=== PATIENT | female | born 1980 | race Caucasian/White ===

== ENCOUNTER 2017-04-12 21:35 | Emergency (ER) | payer OTHER ==
[2017-04-13 01:09] VITALS: RESP 16
--- NOTE | 2017-04-13 02:10 | US ---
EXAM: US First Trimester, Transabdominal US , Transvaginal CLINICAL HISTORY: Reason: pain Generalized pain, hx of molar x 2 years ago with D+C TECHNIQUE: Real-time transabdominal and transvaginal obstetrical ultrasound of the maternal pelvis and a first trimester with image documentation. Transvaginal imaging was used for better evaluation of the fetus and adnexa. COMPARISON: No relevant prior studies available. FINDINGS: Gestation: Small intrauterine saclike structure 0.4 x 0.3 x 0.3 cm may be gestational sac. No yolk sac or pole. Uterus/cervix: Uterus 9.4 x 6.2 x 5.8 cm. 1.2 cm hypoechoic lesion in the posterior fundal myometrium, likely fibroid. Thickened endometrium 2. 5 cm. Ovaries: Right Ovary: 4.4 x 3.1 x 2.4 cm Left Ovary: 2.5 x 1.7 x 2.1 cm 4.9 x 3.6 x 2.1 cm simple cyst in the right adnexa may be paraovarian cyst. Origin not clearly delineated. 2.8 cm right ovarian corpus luteum. Free fluid: No free fluid Other findings: LMP 03/01/17. Dates by LMP 6 weeks 1 day. IMPRESSION: 1. Small intrauterine saclike structure may be gestational sac. Differential diagnosis includes early intrauterine , spontaneous , nonvisualized ectopic . Correlate with labs and consider follow-up. 2. Right ovarian corpus luteum. 3. 4.9 cm right adnexal simple cyst. May be paraovarian cyst, however, origin not clearly delineated.
--- NOTE | 2017-04-13 02:31 | ED ---
Abdominal Pain HPI - General Chief Complaint: Abdominal Pain Stated Complaint: 6 weeks /Abd Pain Time Seen by Provider: 04/12/17 23:04 Source: patient Mode of arrival: ambulatory Limitations: no limitations - History of Present Illness MD Complaint: abdominal pain Onset/Timin -: hour(s) Location: suprapubic Radiation: back Migration to: no migration Severity: mild Quality: cramping Consistency: constant Improves With: nothing Worsens With: nothing Associated Symptoms: denies other symptoms - Related Data LMP (females 10-50): Patient : Yes Home Medications Medication Instructions Recorded Confirmed Pedi Multivit No.25/Folic Acid 2 tab PO DAILY 04/12/17 04/12/17 [Flintstones Multivit Chew Tab] Allergies Allergy/AdvReac Type Severity Reaction Status Date / Time sulfamethoxazole Allergy Rash/Hives/ Verified 04/12/17 23:28 [From Bactrim] Swelling trimethoprim [From Bactrim] Allergy Rash/Hives/ Verified 04/12/17 23:28 Swelling Review of Systems ROS Statement: Those systems with pertinent positive or pertinent negative responses have been documented in the HPI. ROS Other: All systems not noted in ROS Statement are negative. Constitutional: Denies: fever, chills Respiratory: Denies: cough, dyspnea Cardiovascular: Denies: chest pain, palpitations, edema Gastrointestinal: Reports: as per HPI, abdominal pain. Denies: nausea, vomiting , diarrhea, constipation Genitourinary: Reports: abnormal menses. Denies: dysuria, frequency, hematuria Musculoskeletal: Denies: back pain Skin: Denies: rash Neurological: Denies: headache Past Medical History Past Medical History: No Reported History Additional Past Medical History / Comment(s): miscarriage in jul 2015, chronic back pain, molar History of Any Multi-Drug Resistant Organisms: None Reported Past Surgical History: Cholecystectomy Additional Past Surgical History / Comment(s): d & c Past Psychological History: No Psychological Hx Reported, Depression Smoking Status: Current every day smoker Past Alcohol Use History: None Reported Past Drug Use History: None Reported General Exam Limitations: no limitations General appearance: alert, in no apparent distress Head exam: Present: atraumatic, normocephalic Eye exam: Present: normal appearance. Absent: scleral icterus, conjunctival injection Respiratory exam: Present: normal lung sounds bilaterally. Absent: respiratory distress, wheezes, rales, rhonchi, stridor Cardiovascular Exam: Present: regular rate, normal rhythm, normal heart sounds. Absent: systolic murmur, diastolic murmur, rubs, gallop GI/Abdominal exam: Present: soft. Absent: distended, tenderness, guarding, rebound, rigid Extremities exam: Present: normal inspection, normal capillary refill. Absent: pedal edema, calf tenderness Back exam: Present: normal inspection. Absent: CVA tenderness (R), CVA tenderness (L) Neurological exam: Present: alert Skin exam: Present: warm, dry, intact, normal color. Absent: rash Course Vital Signs 04/12/17 04/13/17 04/13/17 21:49 01:08 02:36 Temperature 98.7 F 97.6 F Pulse Rate 111 H 89 64 Respiratory 18 16 16 Rate Blood Pressure 141/86 140/74 118/61 O2 Sat by Pulse 100 98 96 Oximetry Medical Decision Making - Medical Decision Making This patient is a 36-year-old woman who did recently take test was positive. She had not had ultrasound yet. She has not seen the demurrage agent yet. Little over 20 hours before coming in she started to have some low pelvic and low back cramping. When this did not improve she decided to be seen here. She is not having any vaginal bleeding for other symptoms(See ROS). The beta hCG is still relatively low, and the ultrasound was performed, see the attached results. The patient and I discussed the results and she will follow- up to have serial hCG and ultrasound. Discussed return parameters and all questions answered. - Lab Data Lab Results 04/13/17 04/13/17 Range/Units 00:07 00:07 HCG, Quant 910.5 mIU/mL Blood Type A Positive Blood Type Recheck No Disposition Clinical Impression: Threatened miscarriage Disposition: HOME SELF-CARE Condition: Good Instructions: Threatened Miscarriage (ED) Referrals: Srinivas Albert Jr, DO [Primary Care Provider] - 1-2 days Aisha Alarcon DO [Doctor of Osteopathic Medicine] - 1-2 days
[2017-04-13 02:37] VITALS: BP 118/61; PULSE 64; TEMP 97.6
== END 2017-04-13 02:36 | disposition home or self-care (01) ==
LOC: EC 21:35
DX: O20.0 Threatened abortion (principal); O99.331 Smoking (tobacco) complicating pregnancy, first trimester; F17.200 Nicotine dependence, unspecified, uncomplicated; Z3A.01 Less than 8 weeks gestation of pregnancy; Z79.899 Other long term (current) drug therapy; Z88.2 Allergy status to sulfonamides
CPT/HCPCS: 36415; 76801; 76817; 84702; 86900; 86901; 99284

== ENCOUNTER → 2017-04-15 | Outpatient (CLI) | payer OTHER | LOC: LABWHC1 14:12 | PROVIDERS: ATTEND Emergency Medicine | DX: O03.9 Complete or unspecified spontaneous abortion without complication (principal) | CPT/HCPCS: 36415; 84702 ==

== ENCOUNTER 2017-06-09 00:44 | Emergency (ER) | payer OTHER ==
--- NOTE | 2017-06-09 01:13 | ED ---
Female Urogenital HPI - General Chief complaint: Urogenital Stated complaint: 13 weeks preg,back pain Time Seen by Provider: 06/09/17 01:06 Source: patient, RN notes reviewed Mode of arrival: ambulatory Limitations: no limitations - History of Present Illness Initial comments: 36-year-old female presented emergency Department chief complaint of abdominal cramping and spotting . Patient states she currently is seen Dr. Basurto at work by [employer]. Patient states she is A3 and currently 13 weeks . Patient states that over the last day to she's had some spotting. Patient states that she has had spotting earlier in the and in other pregnancies in the past. She states that normally from standing all day at work she has some pressure feeling in cramping states this felt different. Patient denies any dysuria or urinary frequency of usual. Denies any diarrhea, constipation, nausea vomiting. Patient said no known fever or chills. - Related Data Home Medications Medication Instructions Recorded Confirmed Pedi Multivit No.25/Folic Acid 2 tab PO DAILY 04/12/17 04/12/17 [Flintstones Multivit Chew Tab] Allergies Allergy/AdvReac Type Severity Reaction Status Date / Time sulfamethoxazole Allergy Rash/Hives/ Verified 06/09/17 00:52 [From Bactrim] Swelling trimethoprim [From Bactrim] Allergy Rash/Hives/ Verified 06/09/17 00:52 Swelling Review of Systems ROS Statement: Those systems with pertinent positive or pertinent negative responses have been documented in the HPI. ROS Other: All systems not noted in ROS Statement are negative. Past Medical History Past Medical History: No Reported History Additional Past Medical History / Comment(s): miscarriage in jul 2015, chronic back pain, molar History of Any Multi-Drug Resistant Organisms: None Reported Past Surgical History: Cholecystectomy Additional Past Surgical History / Comment(s): d & c Past Psychological History: No Psychological Hx Reported, Depression Smoking Status: Current every day smoker Past Alcohol Use History: None Reported Past Drug Use History: None Reported General Exam Limitations: no limitations General appearance: alert, in no apparent distress Head exam: Present: atraumatic, normocephalic, normal inspection Respiratory exam: Present: normal lung sounds bilaterally. Absent: respiratory distress, wheezes, rales, rhonchi, stridor Cardiovascular Exam: Present: regular rate, normal rhythm, normal heart sounds. Absent: systolic murmur, diastolic murmur, rubs, gallop, clicks GI/Abdominal exam: Present: soft, normal bowel sounds. Absent: distended, tenderness, guarding, rebound, rigid Back exam: Absent: CVA tenderness (R), CVA tenderness (L) Course Vital Signs 06/09/17 00:49 Temperature 99.2 F Pulse Rate 91 Respiratory 20 Rate Blood Pressure 137/74 O2 Sat by Pulse 100 Oximetry Medical Decision Making - Medical Decision Making 36-year-old female presented emergency department for abdominal pain and . Patient's ultrasound shows viable IUP Tobrex 3 days patient urinalysis does not show any acute abnormality. Patient states she's had small amount of bleeding that she stretches which is not abnormal for her. She does not want pelvic exam at this time. Patient will be discharged with follow-up with [employer]. - Lab Data Lab Results 06/09/17 Range/Units 01:20 Urine Color Yellow Urine Appearance Cloudy H (Clear) Urine pH 6.5 (5.0-8.0) Ur Specific [place] 1.014 (1.001-1.035) Urine Protein Negative (Negative) Urine Glucose (UA) Negative (Negative) Urine Ketones Negative (Negative) Urine Blood Negative (Negative) Urine Nitrite Negative (Negative) Urine Bilirubin Negative (Negative) Urine Urobilinogen <2.0 (<2.0) mg/dL Ur Leukocyte Esterase Trace H (Negative) Ur Squamous Epith Cells 7 H (0-4) /hpf Amorphous Sediment Rare H (None) /hpf Urine Bacteria Rare H (None) /hpf Disposition Clinical Impression: Abdominal pain during Disposition: HOME SELF-CARE Condition: Stable Instructions: Abdominal Pain in (ED) Additional Instructions: Please return to the Emergency Department if symptoms worsen or any other concerns. Referrals: Srinivas Albert Jr, [Primary Care Provider] - 1-2 days Time of Disposition: 02:12
[2017-06-09 01:37] LABS: Amorphous Sediment,Urine Rare /hpf; Appearance,Urine Cloudy (Clear); Bacteria,Urine Rare /hpf; Bilirubin,Urine Negative (Negative); Glucose,Urine (UA) Negative (Negative); Ketones,Urine Negative (Negative); Leukocyte Esterase,Urine Trace (Negative); Nitrite,Urine Negative (Negative); PH, Urine 6.5 (5.0-8.0); Particle Count 6311; Protein,Urine Negative (Negative); Specific Gravity,Urine 1.014 (1.001-1.035); Squamous Epithelial Cell,Urine 7 /hpf (0-4); UA Billing (MACRO vs. MICRO) MICRO; Urobilinogen,Urine <2.0 mg/dL (<2.0)
[2017-06-09 02:22] VITALS: BP 127/64; PULSE 78; RESP 16; TEMP 97.8
--- NOTE | 2017-06-09 02:41 | US ---
Ultrasound First Trimester INDICATION: 36-year-old A3 woman presenting with pain. COMPARISON: OB ultrasound 04/13/17 TECHNIQUE: Real-time sonographic evaluation of the female pelvis obtained using grayscale and color flow using transabdominal technique. FINDINGS: MATERNAL ANATOMY Uterus: 13.0 x 8.5 x 10.5 cm with intrauterine . Cervix: 3.12 cm, closed. Right Ovary: 4.2 x 2.5 x 2.8 cm with 3 cm cyst, likely corpus luteum. Left Ovary: 2.5 x 1.9 x 1.4 cm There is no free fluid. GESTATION / SURVEY CRL: 5.89cm (12 weeks/3 days +/-1 week 1 day with estimated delivery date of 12/19/17) Heart Rate: 167 bpm Rhythm: Normal IMPRESSION: Single live intrauterine gestation with estimated gestational age by this ultrasound of 12 weeks 3 days.
== END 2017-06-09 02:22 | disposition home or self-care (01) ==
LOC: EC 00:44
DX: O26.891 Other specified pregnancy related conditions, first trimester (principal); R10.9 Unspecified abdominal pain; O99.331 Smoking (tobacco) complicating pregnancy, first trimester; F17.200 Nicotine dependence, unspecified, uncomplicated; Z79.899 Other long term (current) drug therapy; Z88.2 Allergy status to sulfonamides; Z3A.13 13 weeks gestation of pregnancy
CPT/HCPCS: 76801; 81001; 99283

== ENCOUNTER → 2017-06-17 | Outpatient (CLI) | payer OTHER ==
[2017-06-17 13:23] LABS: CHCM 34.8; HCT 44.4 % (34.0-46.0); HDW 2.79; HGB 14.7 gm/dL (11.4-16.0); MCH 30.6 pg (25.0-35.0); MCHC 33.1 g/dL (31.0-37.0); MCV 92.4 fL (80.0-100.0); Mean Platelet Volume 7.2; RDW 13.6 % (11.5-15.5); WBC 14.2 k/uL (3.8-10.6)
[2017-06-17 13:31] LABS: ALT 32 U/L (9-52); AST 28 U/L (14-36); Glucose 80 mg/dL (74-99); Non-African American GFR(MDRD) >60 (>60 ml/min/1.73 sqM)
[2017-06-17 14:01] LABS: Hepatitis B Surface Ag Index 0.08
[2017-06-17 18:57] LABS: Treponemal Ab Non-Reactive (Non-Reactive)
[2017-06-18 03:32] LABS: Toxoplasma Antibody (IgG) <3.0 IU/mL (<7.2)
== END | disposition home or self-care (01) ==
LOC: LABWHC1 12:50
PROVIDERS: ATTEND Obstetrics & Gynecology
DX: O14.90 Unspecified pre-eclampsia, unspecified trimester (principal); E03.9 Hypothyroidism, unspecified; Z3A.00 Weeks of gestation of pregnancy not specified
CPT/HCPCS: 36415; 82565; 82947; 84439; 84443; 84450; 84460; 85027; 86762; 86777; 86778; 86780; 86850; 86900; 86901; 87340; 87390

== ENCOUNTER 2017-06-30 22:55 | Emergency (ER) | payer OTHER ==
[2017-06-30] MEDS ORDERED: SODIUM CHLORIDE 0.9% 1,000 ML IV STA (23:15)
--- NOTE | 2017-06-30 23:38 | ED ---
General Adult HPI - General Chief complaint: Back Pain/Injury Stated complaint: blood pressure problems/back pain/16wks preg Time Seen by Provider: 06/30/17 23:11 Source: patient, RN notes reviewed Mode of arrival: ambulatory Limitations: no limitations - History of Present Illness Initial comments: 36 yo female presents to the ER with cc of hypertension. Patient is currently 16 weeks . Her doctor has been watching her high blood pressure and a 24-hour urine test on her as well as blood work on her. She states that her blood pressure was up today she is not receiving any of these results from her doctor so she was concerned. Patient states that she has noticed her blood pressures continued to be elevated. Patient states she did have high blood pressure prior to getting but not for the last few years. Patient denies any vaginal bleeding or discharge. She does admit to some right flank- like discomfort. Patient states it hurts to touch. Patient states it hurts to move. Patient was concerned due to her blood pressure so she thought that she should be evaluated. Patient denies any recent fever, chills, shortness of breath, chest pain, abdominal pain, nausea vomiting, numbness or tingling, dysuria or hematuria, constipation or diarrhea, headaches or visual changes, or any other current symptoms. - Related Data Home Medications Medication Instructions Recorded Confirmed Acetaminophen Tab [Tylenol Tab] 325 mg PO Q6H PRN 06/30/17 06/30/17 Pnv,Calcium 72/Iron/Folic Acid 1 tab PO DAILY 06/30/17 06/30/17 [ Plus Tablet] Previous Rx's Medication Instructions Recorded Nitrofurantoin Macrocrystal 100 mg PO BID #14 cap 07/01/17 [Macrodantin] Allergies Allergy/AdvReac Type Severity Reaction Status Date / Time sulfamethoxazole Allergy Rash/Hives/ Verified 06/30/17 23:20 [From Bactrim] Swelling trimethoprim [From Bactrim] Allergy Rash/Hives/ Verified 06/30/17 23:20 Swelling Review of Systems ROS Statement: Those systems with pertinent positive or pertinent negative responses have been documented in the HPI. ROS Other: All systems not noted in ROS Statement are negative. Past Medical History Past Medical History: No Reported History Additional Past Medical History / Comment(s): miscarriage in jul 2015, chronic back pain, molar History of Any Multi-Drug Resistant Organisms: None Reported Past Surgical History: Cholecystectomy Additional Past Surgical History / Comment(s): d & c Past Psychological History: No Psychological Hx Reported Smoking Status: Current every day smoker Past Alcohol Use History: None Reported Past Drug Use History: None Reported General Exam - General Exam Comments Initial Comments: General: The patient is awake and alert, in no distress, and does not appear acutely ill. Eye: Pupils are equal, round and reactive to light, extra-ocular movements are intact; there is normal conjunctiva bilaterally. No signs of icterus. Ears, nose, mouth and throat: There are moist mucous membranes. Neck: The neck is supple, there is no tenderness. Cardiovascular: There is a regular rate and rhythm. No murmur, rub or gallop is appreciated. Respiratory: Lungs are clear to auscultation, respirations are non-labored, breath sounds are equal. No wheezes, stridor, rales, or rhonchi. Gastrointestinal: Soft, non-distended, non-tender abdomen without masses or organomegaly noted. There is no rebound or guarding present. No CVA tenderness. Bowel sounds are unremarkable. Back: There is no tenderness to palpation in the midline. There is no obvious deformity. No rashes noted. Musculoskeletal: Normal ROM, no tenderness, There is no pedal edema. There is no calf tenderness or swelling. Sensation intact. Pulses equal bilaterally 2+. Neurological: CN II-XII intact, There are no obvious motor or sensory deficits. Coordination appears grossly intact. Speech is normal. Skin: Skin is warm and dry and no rashes or lesions are noted. Psychiatric: Cooperative, appropriate mood & affect, normal judgment. Limitations: no limitations Course Vital Signs 06/30/17 07/01/17 23:08 00:08 Temperature 99.3 F Pulse Rate 98 68 Respiratory 20 16 Rate Blood Pressure 156/75 124/62 O2 Sat by Pulse 98 100 Oximetry Medical Decision Making - Medical Decision Making 36-year-old female presents emergency department with a chief complaint of hypertension. At this time patient's previous testing for thyroid as well as urine protein are reviewed and do not show any acute process. Blood work today does not show any changes in the liver there is no swelling no protein noted in the urine. There is suspicion for a mild UTI we will start her on nitrofurantoin. This and blood pressure has improved. We did discuss continued with SENIOR STRATEGY ANALY[employer]. We did discuss return parameters all patient's questions. She stated that she understood and she is given plan. She'll be discharged home. - Lab Data Result diagrams: 06/30/17 23:25 06/30/17 23:25 Lab Results 06/30/17 06/30/17 06/30/17 Range/Units 23:25 23:25 23:25 WBC 16.5 H (3.8-10.6) k/uL RBC 4.61 (3.80-5.40) m/uL Hgb 14.5 (11.4-16.0) gm/dL Hct 41.4 (34.0-46.0) % MCV 89.9 (80.0-100.0) fL MCH 31.6 (25.0-35.0) pg MCHC 35.1 (31.0-37.0) g/dL RDW 13.7 (11.5-15.5) % Plt Count 251 (150-450) k/uL Neutrophils % 73 % Lymphocytes % 19 % Monocytes % 4 % Eosinophils % 2 % Basophils % 0 % Neutrophils # 12.1 H (1.3-7.7) k/uL Lymphocytes # 3.2 (1.0-4.8) k/uL Monocytes # 0.6 (0-1.0) k/uL Eosinophils # 0.3 (0-0.7) k/uL Basophils # 0.1 (0-0.2) k/uL Sodium 139 (137-145) mmol/L Potassium 3.8 (3.5-5.1) mmol/L Chloride 106 (98-107) mmol/L Carbon Dioxide 22 (22-30) mmol/L Anion Gap 11 mmol/L BUN 7 (7-17) mg/dL Creatinine 0.61 (0.52-1.04) mg/dL Est GFR (MDRD) Af Amer >60 (>60 ml/min/1.73 sqM) Est GFR (MDRD) Non-Af >60 (>60 ml/min/1.73 sqM) Glucose 81 (74-99) mg/dL Calcium 9.3 (8.4-10.2) mg/dL Total Bilirubin 0.4 (0.2-1.3) mg/dL AST 25 (14-36) U/L ALT 29 (9-52) U/L Alkaline Phosphatase 60 (38-126) U/L Total Protein 7.3 (6.3-8.2) g/dL Albumin 4.1 (3.5-5.0) g/dL Urine Color Yellow Urine Appearance Cloudy H (Clear) Urine pH 6.5 (5.0-8.0) Ur Specific [place] 1.018 (1.001-1.035) Urine Protein Trace H (Negative) Urine Glucose (UA) Negative (Negative) Urine Ketones Negative (Negative) Urine Blood Negative (Negative) Urine Nitrite Negative (Negative) Urine Bilirubin Negative (Negative) Urine Urobilinogen <2.0 (<2.0) mg/dL Ur Leukocyte Esterase Small H (Negative) Urine RBC 2 (0-5) /hpf Urine WBC 1 (0-5) /hpf Ur Squamous Epith Cells 15 H (0-4) /hpf Calcium Oxalate Crystal Moderate H (None) /hpf Amorphous Sediment Rare H (None) /hpf Urine Bacteria Moderate H (None) /hpf Urine Mucus Rare H (None) /hpf Disposition Clinical Impression: UTI (urinary tract infection) during Disposition: HOME SELF-CARE Condition: Stable Instructions: Urinary Tract Infection in Women (ED) Additional Instructions: Please use medication as discussed. Please follow up with family doctor if symptoms have not improved over the next two days. Please return to the emergency room if your symptoms increase or worsen or for any other concerns. Prescriptions: Nitrofurantoin Macrocrystal [Macrodantin] 100 mg PO BID #14 cap Referrals: Srinivas Albert Jr, DO [Primary Care Provider] - 1-2 days Aisha Alarcon DO [Doctor of Osteopathic Medicine] - 1-2 days Time of Disposition: 00:16
[2017-06-30 23:44] LABS: Basophils # (A) 0.1 k/uL (0-0.2); Basophils % (A) 0 %; CH 32.7; CHCM 36.6; Eosinophils # (A) 0.3 k/uL (0-0.7); Eosinophils % (A) 2 %; HCT 41.4 % (34.0-46.0); HGB 14.5 gm/dL (11.4-16.0); Luc # (Auto) 0.22; Luc % (Auto) 1; Lymphocytes # (A) 3.2 k/uL (1.0-4.8); Lymphocytes % (A) 19 %; MCH 31.6 pg (25.0-35.0); MCHC 35.1 g/dL (31.0-37.0); MCV 89.9 fL (80.0-100.0); Mean Platelet Volume 7.4; Monocytes # (A) 0.6 k/uL (0-1.0); Monocytes % (A) 4 %; Neutrophils # (A) 12.1 k/uL (1.3-7.7); Neutrophils % (A) 73 %; RBC 4.61 m/uL (3.80-5.40); RDW 13.7 % (11.5-15.5); WBC 16.5 k/uL (3.8-10.6)
[2017-06-30 23:48] LABS: Amorphous Sediment,Urine Rare /hpf; Appearance,Urine Cloudy (Clear); Bacteria,Urine Moderate /hpf; Bilirubin,Urine Negative (Negative); Calcium Oxalate Crystals,Urine Moderate /hpf; Glucose,Urine (UA) Negative (Negative); Ketones,Urine Negative (Negative); Leukocyte Esterase,Urine Small (Negative); Mucus,Urine Rare /hpf; Nitrite,Urine Negative (Negative); PH, Urine 6.5 (5.0-8.0); Particle Count 13614; Protein,Urine Trace (Negative); RBC,Urine 2 /hpf (0-5); Specific Gravity,Urine 1.018 (1.001-1.035); Squamous Epithelial Cell,Urine 15 /hpf (0-4); UA Billing (MACRO vs. MICRO) MICRO; Urobilinogen,Urine <2.0 mg/dL (<2.0); WBC,Urine 1 /hpf (0-5)
[2017-07-01] LABS: Anion Gap 11 mmol/L; Calcium 9.3 mg/dL (8.4-10.2); Carbon Dioxide 22 mmol/L (22-30); Chloride 106 mmol/L (98-107); Glucose 81 mg/dL (74-99); Non-African American GFR(MDRD) >60 (>60 ml/min/1.73 sqM); Sodium 139 mmol/L (137-145); Total Bilirubin 0.4 mg/dL (0.2-1.3); Total Protein 7.3 g/dL (6.3-8.2)
[2017-07-01 00:03] LABS: Potassium 3.8 mmol/L (3.5-5.1)
[2017-07-01 00:04] LABS: ALT 29 U/L (9-52); AST 25 U/L (14-36); Alkaline Phosphatase 60 U/L (38-126); Blood Urea Nitrogen 7 mg/dL (7-17)
[2017-07-01 00:09] VITALS: RESP 16
[2017-07-01 00:23] VITALS: BP 118/70; PULSE 65; TEMP 97.8
== END 2017-07-01 00:22 | disposition home or self-care (01) ==
LOC: EC 22:55
DX: O23.42 Unspecified infection of urinary tract in pregnancy, second trimester (principal); O99.332 Smoking (tobacco) complicating pregnancy, second trimester; F17.200 Nicotine dependence, unspecified, uncomplicated; Z90.49 Acquired absence of other specified parts of digestive tract; Z3A.16 16 weeks gestation of pregnancy; Z88.2 Allergy status to sulfonamides; Z98.890 Other specified postprocedural states; Z79.899 Other long term (current) drug therapy
CPT/HCPCS: 36415; 80053; 81001; 85025; 87086; 96360; 99284

== ENCOUNTER 2017-07-12 10:21 | Emergency (ER) | payer OTHER ==
--- NOTE | 2017-07-12 10:43 | ED ---
General Adult HPI - General Chief complaint: Vaginal Bleeding Stated complaint: 18 weeks preg vag bleeding Time Seen by Provider: 07/12/17 10:29 Source: patient, RN notes reviewed Mode of arrival: ambulatory Limitations: no limitations - History of Present Illness Initial comments: Patient is a 36-year-old female who is G6, P3, who presents emergency room today with a chief complaint of vaginal bleeding. Patient admits that she's had some spotting off and on during the . She states she did notice some last night. She states woke up this morning no bleeding at that time. 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 States came back: The bathroom and noticed bright red blood in the toilet. She states that she cannot put up and does not have please at this time. Does admit to cramping off and on during this . Currently denies any pain. Does admit that she has an appointment with her AMER[employer] S[employer] LANGUAGE INTERPRETER tomorrow. She was concerned about the bleeding today and came here to be seen. Denies any other complaints or symptoms at this time. Patient denies any recent fever, chills, shortness of breath, chest pain, back pain, nausea or vomiting, numbness or tingling, dysuria or hematuria, constipation or diarrhea, headaches or visual changes, or any other complaints. - Related Data Home Medications Medication Instructions Recorded Confirmed Pnv,Calcium 72/Iron/Folic Acid 1 tab PO DAILY@1200 06/30/17 06/30/17 [ Plus Tablet] Allergies Allergy/AdvReac Type Severity Reaction Status Date / Time sulfamethoxazole Allergy Rash/Hives/ Verified 07/12/17 10:42 [From Bactrim] Swelling trimethoprim [From Bactrim] Allergy Rash/Hives/ Verified 07/12/17 10:42 Swelling Review of Systems ROS Statement: Those systems with pertinent positive or pertinent negative responses have been documented in the HPI. ROS Other: All systems not noted in ROS Statement are negative. Past Medical History Past Medical History: No Reported History Additional Past Medical History / Comment(s): miscarriage in jul 2015, chronic back pain, molar History of Any Multi-Drug Resistant Organisms: None Reported Past Surgical History: Cholecystectomy, Orthopedic Surgery Additional Past Surgical History / Comment(s): d & c Past Psychological History: No Psychological Hx Reported Smoking Status: Current every day smoker Past Alcohol Use History: None Reported Past Drug Use History: None Reported General Exam - General Exam Comments Initial Comments: General: The patient is awake and alert, in no distress, and does not appear acutely ill. Eye: Pupils are equal, round and reactive to light, extra-ocular movements are intact. No nystagmus. There is normal conjunctiva bilaterally. No signs of icterus. Ears, nose, mouth and throat: There are moist mucous membranes and no oral lesions. Neck: The neck is supple, there is no tenderness or JVD. Cardiovascular: There is a regular rate and rhythm. No murmur, rub or gallop is appreciated. Respiratory: Lungs are clear to auscultation, respirations are non-labored, breath sounds are equal. No wheezes, stridor, rales, or rhonchi. Gastrointestinal: Soft, non-distended, non-tender abdomen without masses or organomegaly noted. There is no rebound or guarding present. No CVA tenderness. Bowel sounds are unremarkable. Musculoskeletal: Normal ROM, no tenderness. Strength 5/5. Sensation intact. Pulses equal bilaterally 2+. Neurological: A&O x 3. CN II-XII intact, There are no obvious motor or sensory deficits. Coordination appears grossly intact. Speech is normal. Skin: Skin is warm and dry and no rashes or lesions are noted. Psychiatric: Cooperative, appropriate mood & affect, normal judgment. Limitations: no limitations Course Vital Signs 07/12/17 10:26 Temperature 98.0 F Pulse Rate 113 H Respiratory 20 Rate Blood Pressure 135/89 O2 Sat by Pulse 99 Oximetry Medical Decision Making - Medical Decision Making Patient reexamined at this time showing no signs of distress. Patient's urinalysis negative for any sign of infection. Small amount of blood. Patient states she's not wearing a pad has not had any major bleeding here in the emergency room. Soft nontender. heart tones reviewed and 150s at this time. Patient's had ultrasound on this on 06/09/2017 showing a viable IUP at 12 weeks 3 days at the time. Patient does have an appointment with her [employer] S[employer] LANGUAGE INTERPRETER tomorrow. Advised to go home and relax and take it easy with no strenuous activity to follow-up the OB tomorrow. - Lab Data Lab Results 07/12/17 Range/Units 10:55 Urine Color Yellow Urine Appearance Cloudy H (Clear) Urine pH 6.5 (5.0-8.0) Ur Specific [place] 1.018 (1.001-1.035) Urine Protein Trace H (Negative) Urine Glucose (UA) Negative (Negative) Urine Ketones Negative (Negative) Urine Blood Negative (Negative) Urine Nitrite Negative (Negative) Urine Bilirubin Negative (Negative) Urine Urobilinogen <2.0 (<2.0) mg/dL Ur Leukocyte Esterase Negative (Negative) Urine RBC 3 (0-5) /hpf Urine WBC 4 (0-5) /hpf Ur Squamous Epith Cells 45 H (0-4) /hpf Amorphous Sediment Moderate H (None) /hpf Urine Bacteria Few H (None) /hpf Urine Mucus Rare H (None) /hpf Disposition Clinical Impression: Vaginal bleeding before 22 weeks gestation Disposition: HOME SELF-CARE Condition: Good Instructions: (ED) Additional Instructions: Please follow-up with AMERICAN SIGN LANGUAGE INTERPRETER tomorrow with your scheduled appointment. Please return to emergency room if the symptoms increase or worsen or for any other concerns. Referrals: Srinivas Albert Jr, DO [Primary Care Provider] - 1-2 days Time of Disposition: 11:49
[2017-07-12 11:06] LABS: Amorphous Sediment,Urine Moderate /hpf; Appearance,Urine Cloudy (Clear); Bacteria,Urine Few /hpf; Bilirubin,Urine Negative (Negative); Glucose,Urine (UA) Negative (Negative); Ketones,Urine Negative (Negative); Leukocyte Esterase,Urine Negative (Negative); Mucus,Urine Rare /hpf; Nitrite,Urine Negative (Negative); PH, Urine 6.5 (5.0-8.0); Particle Count 10584; Protein,Urine Trace (Negative); RBC,Urine 3 /hpf (0-5); Specific Gravity,Urine 1.018 (1.001-1.035); Squamous Epithelial Cell,Urine 45 /hpf (0-4); UA Billing (MACRO vs. MICRO) MICRO; Urobilinogen,Urine <2.0 mg/dL (<2.0); WBC,Urine 4 /hpf (0-5)
[2017-07-12 12:05] VITALS: BP 121/67; PULSE 96; RESP 17; TEMP 97.5
== END 2017-07-12 12:05 | disposition home or self-care (01) ==
LOC: EC 10:21
DX: O46.92 Antepartum hemorrhage, unspecified, second trimester (principal); O99.332 Smoking (tobacco) complicating pregnancy, second trimester; F17.200 Nicotine dependence, unspecified, uncomplicated; Z79.899 Other long term (current) drug therapy; Z88.1 Allergy status to other antibiotic agents; Z3A.22 22 weeks gestation of pregnancy
CPT/HCPCS: 81001; 87086; 99284

== ENCOUNTER 2017-10-06 11:25 | Outpatient (CLI) | payer OTHER ==
--- NOTE | 2017-10-06 14:07 | US ---
EXAMINATION TYPE: US OB limited DATE OF EXAM: 10/06/2017 COMPARISON: US CLINICAL HISTORY: aby. contraction EXAM PERFORMED: 10/06/2017 GESTATIONAL AGE / DATING Physician Established: (30 weeks/0 days) EDC: 12/15/2017 No growth performed on today?s study per ordering physician SURVEY ABY: 12.1 cm Normal Ultrasound evidence of premature rupture of membranes? no HEART RATE: 138 bpm RHYTHM: Normal ABY only per ordering physician IMPRESSION: Limited exam demonstrating a single live intrauterine . ABY is within normal li mits measuring 12.1 cm.
--- NOTE | 2017-12-03 16:10 | P.MSEPDOC ---
Presenting Problems - Arrival Data Date of Arrival on Unit: 10/06/17 Time of Arrival on Unit: 11:26 Mode of Transport: Portable Medical History - Information : 7 Para: 3 Term: 1 : 2 Abortions: Spontaneous or Elective: 3 Number of Living Children: 3 - Gestational Age Gestational Age by YUNIEL (wks/days): 30 Weeks and 0 Days I agree with the RN Medical Screening Exam: Yes Physician's MSE Comment: sent from office for contractions. FFN was negative. Risk & Benefit of care provided described in d/c instruction: Yes Diagnosis: FALSE LABOR BEFORE 37 COMPLETED WEEKS OF GEST, THIRD TRI
== END 2017-10-06 14:06 | disposition home or self-care (01) ==
LOC: FBPOP 11:25
PROVIDERS: ATTEND Obstetrics & Gynecology
DX: O47.03 False labor before 37 completed weeks of gestation, third trimester (principal); Z3A.30 30 weeks gestation of pregnancy
CPT/HCPCS: 59025; 82731; 76815; G0463; 99213

== ENCOUNTER → 2019-09-27 | Outpatient (CLI) | payer OTHER ==
--- NOTE | 2019-09-28 07:13 | US ---
EXAMINATION TYPE: US kidneys/renal and bladder DATE OF EXAM: 09/27/2019 COMPARISON: US 2014 CLINICAL HISTORY: D35.02 ADRENAL MASS. Adrenal mass EXAM MEASUREMENTS: Right Kidney: 10.6 x 5.5 x 5.2 cm Left Kidney: 11.2 x 6.3 x 4.9 cm Right Kidney: no hydronephrosis or masses seen Left Kidney: no hydronephrosis or masses seen Bladder: wnl Bilateral Jets seen: yes Adrenal glands not seen on today's exam. There is no evidence for hydronephrosis at this point in time. No nephrolithiasis is seen. No carlos s are identified. The urinary bladder is anechoic. Bilateral ureteral jets are seen. IMPRESSION: Adrenal glands are typically difficult to visualize on ultrasound and not seen on today's examination. Three-phase CT abdomen would be recommended (adrenal mass protocol) for further evaluat ion.
== END | disposition home or self-care (01) ==
LOC: RADUSWWP 16:20
PROVIDERS: ATTEND Family Medicine
DX: D35.02 Benign neoplasm of left adrenal gland (principal); Z88.2 Allergy status to sulfonamides; Z88.8 Allergy status to other drugs, medicaments and biological substances
CPT/HCPCS: 76770

== ENCOUNTER → 2019-11-15 | Outpatient (CLI) | payer OTHER ==
--- NOTE | 2019-11-15 12:39 | CT ---
EXAMINATION TYPE: CT abdomen wo/w con DATE OF EXAM: 11/15/2019 HISTORY: Left adrenal mass. CT DLP: 1822.8mGycm Automated Exposure Control for Dose Reduction was Utilized. CONTRAST: CT scan of the abdomen is performed with oral and without and with IV Contrast, patient injected with 100 mL of Isovue M300. Adrenal mass protocol COMPARISON: Renal ultrasound September 27, 2019. CT lumbar spine June 26, 2016 FINDINGS: LUNG BASES: No significant abnormality is appreciated. LIVER/GB: Liver is low dense relative to spleen on noncontrast images consistent with diffuse fatty i nfiltration. Findings similar to visualized portion of liver on 2016 CT. Cholecystectomy clips are re demonstrated PANCREAS: No significant abnormality is seen. SPLEEN: No significant abnormality is seen. ADRENALS: There is persistent left adrenal mass of fat density measuring 4.4 x 2.9 cm axial image 21 series 9 consistent with angiomyolipoma not significant change from 2016 CT when accounting for techn ical differences. Right adrenal gland is normal in size. KIDNEYS: No renal calculi on noncontrast images. Postcontrast images show symmetric cortical medullar y uptake and excretion without hydronephrosis seen bilaterally. BOWEL: Terminal ileum identified and slightly low-lying cecum in the right upper pelvis. Few scattere d colonic diverticula are seen. No acute diverticulitis. The oral contrast does not reach colonic lev el. No suspicious small or large bowel dilatation. UTERUS/ADNEXA: Partial visualization of uterine fundus. Partial visualization of cystic lesion measur ing 5.8 x 4.1 cm along the anterior left aspect of uterine fundus presumed ovarian in etiology. Prior ultrasounds from 2016 and 2017 do not document similar size lesion. LYMPH NODES: No greater than 1cm abdominal lymph nodes are appreciated. OSSEOUS STRUCTURES: No significant abnormality is seen. OTHER: Small fat-containing umbilical hernia. IMPRESSION: 1. 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 2. Partial visualization of upper pelvic 5.8 cm cystic lesion presumed of left ovarian origin. Findin g can be better evaluated and characterized with pelvic ultrasound if desired.
== END | disposition home or self-care (01) ==
LOC: RADCTMAIN 11:01
PROVIDERS: ATTEND Family Medicine
DX: E27.9 Disorder of adrenal gland, unspecified (principal); D35.02 Benign neoplasm of left adrenal gland; Z88.2 Allergy status to sulfonamides; Z88.8 Allergy status to other drugs, medicaments and biological substances
CPT/HCPCS: 74170; Q9967 ×2

== ENCOUNTER → 2019-12-05 | Outpatient (CLI) | payer OTHER ==
--- NOTE | 2019-12-05 10:32 | US ---
EXAMINATION TYPE: US transvaginal DATE OF EXAM: 12/05/2019 COMPARISON: NONE CLINICAL HISTORY: ovarian cyst. cyst follow up to ct scan TECHNIQUE: Transvaginal (TV). Date of LMP: 11/12/2019 EXAM MEASUREMENTS: Uterus: 7.7 x 5.1 x 6.0 cm Endometrial Stripe: 1.2 cm Right Ovary: 3.1 x 2.2 x 1.6 cm Left Ovary: 2.4 x 1.8 x 1.9 cm 1. Uterus: Anteverted nabothian cysts seen 2. Endometrium: wnl 3. Right Ovary: Cystic area adjacent to ovary 3.4 x 3.1 x 5.9 cm. 4. Left Ovary: wnl 5. Bilateral Adnexa: Right adnexal cystic area 3.4 x 3.1 x 5.9 cm. This appears anechoic internally with a questionable mural nodule on image 31/39 that appears sessile. 6. Posterior cul-de-sac: wnl IMPRESSION: Cystic 5.9 cm right ovarian lesion with questionable small mural nodule versus obliquity in imaging. Note the size of this mass does predispose this patient to ovarian torsion. Short-term fo llow-up pelvic ultrasound is recommended in 3 menstrual cycles or 3 months to assess for interval res olution.
--- NOTE | 2019-12-06 07:23 | ECHOF ---
Referral Reason:I10 hypertention MEASUREMENTS -------- HEIGHT: 167.6 cm WEIGHT: 86.2 kg BP: RVIDd: 1.6 cm (< 3.3) IVSd: 1.2 cm (0.6 - 1.1) LVIDd: 3.9 cm (3.9 - 5.3) LVPWd: 1.5 cm (0.6 - 1.1) IVSs: 1.7 cm LVIDs: 2.4 cm LVPWs: 1.9 cm LAESV Index (A-L): 8.90 ml/m Ao Diam: 3.9 cm (2.0 - 3.7) AV Cusp: 2.2 cm (1.5 - 2.6) MV E Bradley: 0.92 m/s MV DecT: 180 ms MV A Bradley: 0.65 m/s MV E/A Ratio: 1.41 RAP: 5.00 mmHg RVSP: 13.79 mmHg FINDINGS -------- Sinus rhythm. This was a technically adequate study. The left ventricular size is normal. There is moderate concentric left ventricular hypertrophy. O verall left ventricular systolic function is normal with, an EF between 55 - 60 %. The diastolic fi lling pattern is normal for the age of the patient 10.01. The right ventricle is normal in size. Normal LA size by volume 22+/-6 ml/m2. The right atrial size is normal. Interatrial and interventricular septum intact. The aortic valve was not well visualized. There is no evidence of aortic regurgitation. There is no evidence of aortic stenosis. No mitral regurgitation. Trace tricuspid regurgitation present. There is no evidence of pulmonary hypertension. The right ventricular systolic pressure, as measured by Doppler, is 13.79mmHg. The pulmonic valve was not well visualized. The aortic root size is normal. IVC Not well visulized. There is no pericardial effusion. CONCLUSIONS -------- 1. Sinus rhythm. 2. This was a technically adequate study. 3. The left ventricular size is normal. 4. There is moderate concentric left ventricular hypertrophy. 5. The diastolic filling pattern is normal for the age of the patient 10.01 6. The right ventricle is normal in size. 7. Normal LA size by volume 22+/-6 ml/m2. 8. The right atrial size is normal. 9. Interatrial and interventricular septum intact. 10. The aortic valve was not well visualized. 11. There is no evidence of aortic regurgitation. 12. There is no evidence of aortic stenosis. 13. No mitral regurgitation. 14. Trace tricuspid regurgitation present. 15. There is no evidence of pulmonary hypertension. 16. The right ventricular systolic pressure, as measured by Doppler, is 13.79mmHg. 17. The pulmonic valve was not well visualized. 18. The aortic root size is normal. 19. IVC Not well visulized. 20. There is no pericardial effusion. PLASTER WHITTLER: Matilde Jacome RDCS
== END | disposition home or self-care (01) ==
LOC: RADECHMAIN 08:27
PROVIDERS: ATTEND Family Medicine
DX: N83.00 Follicular cyst of ovary, unspecified side (principal); I10 Essential (primary) hypertension; E78.2 Mixed hyperlipidemia; I51.7 Cardiomegaly; Z88.2 Allergy status to sulfonamides; Z88.8 Allergy status to other drugs, medicaments and biological substances
CPT/HCPCS: 76830; 93306

== ENCOUNTER → 2022-04-06 | Outpatient (CLI) | payer OTHER ==
--- NOTE | 2022-04-06 07:50 | MR ---
EXAMINATION TYPE: MR abdomen wo con DATE OF EXAM: 04/06/2022 COMPARISON: CT abdomen November 15, 2019 HISTORY: Adrenal mass, neoplasm Standard multiplanar, multisequence MRI departmental protocol Multiplanar, multisequence images of the abdomen were acquired without contrast. Imaging performed of the abdomen focusing on the adrenal glands. Diffusion-weighted imaging also performed. FINDINGS: Adrenal glands: Seen better on CT versus MRI there is oval shaped well-defined lesion isoechoic to fa t from the posterior limb left adrenal gland measuring 4.6 x 2.6 cm consistent with benign myelolipom a stable in size from prior CT. No new solid or cystic adrenal masses are seen. Other: Lung bases are grossly clear. The liver, spleen, and pancreas all appear within normal limits. Gallbladder is surgically absent. There is exophytic subcentimeter cyst medially from left kidney up per pole level coronal image 30. No hydronephrosis seen bilaterally. Osseous structures are intact. N o bowel obstruction. No ascites. IMPRESSION: Stable left adrenal 4.6 cm mass consistent with benign myolipoma.
== END | disposition home or self-care (01) ==
LOC: RADMRIMAIN 06:04
PROVIDERS: ATTEND Surgery
DX: D35.02 Benign neoplasm of left adrenal gland (principal)
CPT/HCPCS: 74181

== ENCOUNTER → 2024-03-07 | Outpatient (CLI) | payer OTHER ==
--- NOTE | 2024-03-07 12:27 | CT ---
EXAMINATION TYPE: CT abdomen pelvis wo con DATE OF EXAM: 03/07/2024 COMPARISON: 11/16/2019 HISTORY: umbilical pain CT DLP: 1000 mGycm Examination of the solid and hollow viscera is limited given the lack of contrast. FINDINGS: LUNG BASES: No evidence for nodule. No evidence for infiltrate. Mild hepatic steatosis and hepatomega ly. LIVER/GB: The gallbladder is surgically absent. No space-occupying hepatic lesion. PANCREAS: No pancreatic mass identified. No inflammatory process seen. SPLEEN: No evidence for splenomegaly. No intrasplenic lesions seen. ADRENALS: No adrenal nodules identified. No evidence for thickening. KIDNEYS: No evidence for renal mass. No nephrolithiasis. No hydronephrosis. BOWEL: Appendix has a normal appearance. No evidence of bowel obstruction. No inflammatory process. Lymph nodes: No evidence for adenopathy greater than 1 cm. Abdominal aorta: Atheromatous changes seen. No evidence for aneurysm. Genital organs: No significant abnormality. Other: No significant abnormality. IMPRESSION: Mild hepatic steatosis and hepatomegaly. OTHERWISE UNREMARKABLE STUDY.
== END | disposition home or self-care (01) ==
LOC: RADCTMAIN 12:02
PROVIDERS: ATTEND Surgery
DX: K76.0 Fatty (change of) liver, not elsewhere classified (principal); R16.0 Hepatomegaly, not elsewhere classified
CPT/HCPCS: 74176